=== PATIENT | male | born 1980 | race African-American/Black ===

== ENCOUNTER 2017-03-08 17:00 | Emergency (ER) | payer OTHER ==
[~2017-03-08] VITALS: Ht 185.4 cm; Wt 92.1 kg
[~2017-03-08 17:00] MED LIST: CORTISPORIN-TC10 M1 LEFT EAR; FLEXERIL10 MG PO; NAPROSYN500 MG PO; PREDNISONE10 MG PO; TOBRAMYCIN SULFA5 ML BOTH EYES; ULTRAM50 MG PO
[2017-03-08] MEDS ORDERED: VALIUM5 MG PO (21:09)
[2017-03-08] MEDS ORDERED: NAPROSYN500 MG PO (21:09)
[2017-03-08 21:30] VITALS: BP 141/89
== END 2017-03-08 21:36 | disposition home or self-care (01) ==
LOC: EME 17:00
DX: S93.401A Sprain of unspecified ligament of right ankle, initial encounter (principal); M62.830 Muscle spasm of back; W18.40XA Slipping, tripping and stumbling without falling, unspecified, initial encounter; Z87.891 Personal history of nicotine dependence
CPT/HCPCS: 73610; 99281; 99283

== ENCOUNTER 2017-08-19 22:50 | Emergency (ER) | payer OTHER ==
[~2017-08-19] VITALS: Ht 185.4 cm; Wt 90.0 kg
[~2017-08-19 22:50] MED LIST changes: +VALIUM5 MG PO
[2017-08-20] MEDS ORDERED: MOTRIN800 MG PO (01:57)
[2017-08-20 02:24] VITALS: BP 143/79
== END 2017-08-20 02:25 | disposition home or self-care (01) ==
LOC: EME 22:50
DX: M25.562 Pain in left knee (principal); W20.8XXA Other cause of strike by thrown, projected or falling object, initial encounter; F17.200 Nicotine dependence, unspecified, uncomplicated
CPT/HCPCS: 73564; 99281; 99283